=== PATIENT | female | born 1965 | race Two or more races ===

== ENCOUNTER 2024-12-28 20:44 | Inpatient (IN) | payer BC, OTHER ==
[~2024-12-28] VITALS: Ht 162.6 cm; Wt 68.0 kg
[2024-12-28] MEDS ORDERED: CARVEDILOL ER40 MG (21:10)
[2024-12-28] MEDS ORDERED: DULOXETINE HCL40 MG (21:10)
[2024-12-28] MEDS ORDERED: VALACYCLOVIR500 MG PO (21:10)
[2024-12-28] MEDS ORDERED: CARDURA8 MG (21:10)
[2024-12-28] MEDS ORDERED: OZEMPIC2 MG/0.75 (21:11)
[2024-12-28] MEDS ORDERED: ZERVIATE1 EACH (21:11)
[2024-12-28] MEDS ORDERED: HYSINGLA ER60 MG (21:12)
--- NOTE | 2024-12-28 21:13 | NUR ---
SE RECIBE PTE ALERTA Y ORIENTADA X3. REFIERE HIPOTENSION CUANDO SE PONE DE PIE. AL MOMENTO DEL TRIAGE BP 120/70 MMHG
[2024-12-28] MEDS ORDERED: DEXTROSE 5 % AND 0.9 % NACL 1,000 ML IV STA (22:23)
[2024-12-28] MEDS ORDERED: ONDANSETRON HCL 2 MG/ML VIAL IV STA (22:24)
[2024-12-28] MEDS ORDERED: FAMOtidine 10 MG/ML (4ML VIAL) IV PUSH STA (22:25)
[2024-12-28] MEDS ORDERED: MORPHINE SULFATE 4 MG/ML CARTRIDGE IV STA (22:26)
[2024-12-28] MEDS ORDERED: ONDANSETRON HCL 2 MG/ML VIAL ONE (23:01)
[2024-12-28] MEDS ORDERED: FAMOTIDINE/PF 20 MG/2 ML VIAL ONE (23:01)
--- NOTE | 2024-12-28 23:17 | NUR ---
SE ORIENTA APTE SOBRE [place] MEDICO Y LA MISMA REFIERE NETENDER. SE CANALIZA A PTE EN MANO JEFFREY CON ANGIO #22, SE RECOLECTAN MUESTRAS DE LAB Y SE ADMSNITRAN MEDICAMENTOS STACEY ORDEN MEDICA BAJO MEDIDAS ASEPTICAS.
[2024-12-28 23:27] LABS: INR 1.08; PARTIAL THROMBOPLASTIN TIME 30.4 SECONDS (22.0-34.0); PROTHROMBIN TIME 11.7 SECONDS (9.0-11.5)
[2024-12-28 23:29] LABS: ALBUMIN 3.8 gm/dL (3.4-5.0); BILIRUBIN TOTAL 0.59 mg/dL (0.3-1.2); CALCIUM 9.2 mg/dL (8.5-10.1); CREATININE SERUM 1.84 mg/dL (0.55-1.02); GFR 28.27; POTASSIUM 3.92 mEq/L (3.5-5.1); TOTAL PROTEIN 6.8 gm/dL (6.4-8.2)
[2024-12-28 23:45] LABS: HEMATOCRIT 37.4 % (36.0-45.00); HEMOGLOBIN 12.6 g/dL (12.0-15.00); MEAN CELL VOLUME 90.5 fL (80.00-100.00); MEAN CORPUSCULAR HEMOGLOBIN 30.4 pg (27.00-32.0); MEAN CORPUSCULAR HGB CONC 33.6 g/dl (32.0-36.0); PLATELET COUNT 265 K/uL (150-450); RED BLOOD COUNT 4.14 M/uL (4.00-6.00); RED CELL DISTRIBUTION WIDTH 14.6 % (11.5-14.5)
[2024-12-28 23:50] LABS: ERYTHROCYTE SEDIMENTATION RATE 13 mm/hr
[2024-12-29 01:00] LABS: PH,URINE 5.5 (5.0-8.0); URINE APPEARANCE Clear; URINE BACTERIA 28.1 uL (0.0-1933); URINE BILIRRUBIN Negative (NEGATIVE); URINE BLOOD Negative; URINE CAST 3.09 uL (0.0-1.40); URINE COLOR Yellow; URINE EPITHELIAL CELLS 16.6 uL (0.0-38.8); URINE GLUCOSE Negative (NEGATIVE); URINE KETONE Negative (NEGATIVE); URINE LEUKOCYTE Negative; URINE NITRATE Negative; URINE PROTEIN Negative (NEGATIVE); URINE RBC 5.4 uL (0.0-20.8); URINE UROBILINOGEN 0.2 E.U./dl; URINE WBC 9.1 uL (0.0-23.2)
[2024-12-29 01:02] LABS: URINE CRYSTALS MANY /HPF
--- NOTE | 2024-12-29 07:29 | NUR ---
PTE FEMENINA DE 59 YRS ALERTA CONCIENTE Y TRANQUILA EN ANDRA CON BARBADAS ELEVADA PTE CON IVF'S .D/.9NSS A 150 ML HRS SE LE EMILEE S/V Y SE DOCUMETA, SE MANTIENE NEN ESPERA DE MEDICO CONSULTOR . SE MANTIENE EN ESPERA DE MEDICO CONSULTOR
[2024-12-29] MEDS ORDERED: LORazepam 1 MG TABLET PO STA (12:14)
[2024-12-29] MEDS ORDERED: ONDANSETRON HCL 2 MG/ML VIAL IV STA (16:56)
[2024-12-29] MEDS ORDERED: MORPHINE SULFATE 4 MG/ML CARTRIDGE IV ONE (17:30)
[2024-12-29] MEDS ORDERED: ACETAMINOPHEN 325 MG TABLET PO PRN (19:45)
[2024-12-29] MEDS ORDERED: DEXTROSE 5 % AND 0.9 % NACL 1,000 ML IV SCH (19:45)
[2024-12-29] MEDS ORDERED: MORPHINE SULFATE 4 MG/ML CARTRIDGE IV PRN (19:45)
[2024-12-29] MEDS ORDERED: ONDANSETRON HCL 4 MG in 0.9 % SODIUM CHLORIDE 50 ML IV PRN (19:45)
[2024-12-29] MEDS ORDERED: TEMAZEPAM 15 MG CAPSULE PO PRN (20:00)
[2024-12-29 20:37] VITALS: BP 164/80; O2SAT 97
[2024-12-29] MEDS ORDERED: PANTOPRAZOLE SODIUM 40 MG/VIAL VIAL IV SCH (21:00)
[2024-12-29] MEDS ORDERED: GABAPENTIN 600 MG TABLET PO SCH (21:00)
[2024-12-29 23:44] VITALS: BP 146/75; O2SAT 97
[2024-12-30 01:46] VITALS: BP 151/89; O2SAT 95
[2024-12-30 08:00] VITALS: BP 114/66; O2SAT 98
[2024-12-30] MEDS ORDERED: Duloxetine HCl 60 MG CAPSULE.DR PO SCH (09:00)
[2024-12-30] MEDS ORDERED: CARVEDILOL 25 MG TABLET PO SCH (09:00)
[2024-12-30] MEDS ORDERED: APIXABAN 5 MG TABLET PO SCH (09:00)
[2024-12-30] MEDS ORDERED: MONTELUKAST SODIUM 10 MG TABLET PO SCH (09:00)
[2024-12-30] MEDS ORDERED: ACETAMINOPHEN 500 MG GEL..CAP PO PRN (12:45)
[2024-12-30] MEDS ORDERED: CETIRIZINE HCL 5 MG/5 ML ML PO SCH (13:00)
[2024-12-30 16:00] VITALS: BP 181/84; O2SAT 95
[2024-12-30] MEDS ORDERED: LACTOBACILLUS ACIDOPHILUS 1 CAP CAP PO SCH (17:00)
[2024-12-30] MEDS ORDERED: ROSUVASTATIN CALCIUM 10 MG TABLET PO SCH (17:00)
[2024-12-30] MEDS ORDERED: DOCUSATE SODIUM 100MG CAP PO SCH (17:00)
[2024-12-30] MEDS ORDERED: DOXAZOSIN MESYLATE 2 MG TABLET PO SCH (17:00)
[2024-12-30 20:00] VITALS: BP 148/85
[2024-12-31 00:57] VITALS: BP 149/81; O2SAT 98
[2024-12-31 08:00] VITALS: BP 152/89; O2SAT 96
[2024-12-31] MEDS ORDERED: POTASSIUM CHLORIDE 10 MEQ CAPSULE PO SCH (09:00)
[2024-12-31 09:14] LABS: CALCIUM 8.4 mg/dL (8.5-10.1); CREATININE SERUM 0.86 mg/dL (0.55-1.02); GFR 68.01; MAGNESIUM 1.9 mg/dL (1.8-2.4); POTASSIUM 3.87 mEq/L (3.5-5.1)
[2024-12-31] MEDS ORDERED: LORazepam 0.5 MG TABLET PO STA (11:50)
[2024-12-31 16:00] VITALS: BP 146/79; O2SAT 97
[2024-12-31] MEDS ORDERED: LORazepam 1 MG TABLET PO SCH (21:00)
[2025-01-01 00:16] VITALS: BP 139/84; O2SAT 97
[2025-01-01 08:00] VITALS: BP 150/85; O2SAT 96
== END 2025-01-01 13:36 | disposition home or self-care (01) | DRG 642 ==
LOC: ER 20:45 → SURH 12-29 21:36 → SEC-K 12-29 21:36 → SURH 12-29 22:13
PROVIDERS: ADMIT Internal Medicine; ATTEND Internal Medicine
DX: E80.21 Acute intermittent (hepatic) porphyria (principal); N17.9 Acute kidney failure, unspecified; K90.49 Malabsorption due to intolerance, not elsewhere classified; I95.1 Orthostatic hypotension; E11.9 Type 2 diabetes mellitus without complications; Z79.4 Long term (current) use of insulin; E78.5 Hyperlipidemia, unspecified; G47.33 Obstructive sleep apnea (adult) (pediatric); F32.9 Major depressive disorder, single episode, unspecified; Z86.718 Personal history of other venous thrombosis and embolism; I10 Essential (primary) hypertension; M79.7 Fibromyalgia